=== PATIENT | female | born 1970 | race Caucasian/White ===

== ENCOUNTER 2016-11-19 11:43 | Emergency (ER) | payer OTHER ==
[~2016-11-19] VITALS: Ht 165.1 cm; Wt 94.1 kg
[~2016-11-19 11:43] MED LIST: ABILIFY10 MG PO; ACIPHEX20 MG PO; BAYER BACK & B1 EACH PO; BENTYL20 MG PO; BUSPAR10 MG PO; CARAFATE1 GM PO; DILAUDID2 MG PO; FEOSOL325 MG PO; FLAGYL500 MG PO; PRILOSEC20 MG PO; VALACYCLOVIR1000 MG PO; VIVARIN200 MG PO; ZOFRAN ODT8 MG PO; ZOFRAN4 MG PO; ZOLOFT100 MG PO; ZYRTEC10 M2 PO
[2016-11-19 12:44] LABS: EOSINOPHIL (%) 0.4 % (0-5); HEMATOCRIT 42.9 % (36.0-46.0); IMMATURE GRANULOCYTE (%) 0.3 % (0.0-0.7); INSTRUMENT ABS NEUTROPHIL CT 7.2 K/uL; LYMPHOCYTE COUNT 1.9 K/uL (1.0-2.8); MCH 30.2 PG (29.0-34.0); MCHC 34.5 G/DL (30.0-36.0); MCV 87.6 FL (83-99); MEAN PLAT.VOLUME 11.4 uM^3 (9.5-12.4); MONOCYTE (%) 5.7 % (3-12); MONOCYTE COUNT 0.6 K/uL (0-0.8); NEUTROPHIL (%) 73.8 % (45-76); NEUTROPHIL COUNT 7.2 K/uL (1.8-6.4); PLATELET COUNT 174 K/uL (156-360); RBC DIS.WIDTH-CV 14.6 % (11.8-14.6); RBC DIS.WIDTH-SD 47.1 % (39-53); WHITE BLOOD COUNT 9.7 K/uL (4.1-10.2)
[2016-11-19 12:45] LABS: INTER. NORMALIZED RATIO 1.1; PROTHROMBIN TIME 11.6 SEC (10.2-12.9)
[2016-11-19 12:46] LABS: CHLORIDE 105 mEq/L (99-109); POTASSIUM 3.7 mEq/L (3.7-5.4); SODIUM 139 mEq/L (136-147)
[2016-11-19 12:48] LABS: GLUCOSE 97 mg/dL (70-99)
[2016-11-19 12:49] LABS: ANION GAP 11 MEQ/L (2-14)
[2016-11-19 12:50] LABS: TOTAL BILIRUBIN 0.7 mg/dL (0.0-1.0)
[2016-11-19 12:52] LABS: ALKALINE PHOSPHATASE 84 IU/L (3-129); GFR ESTIMATE (CALCULATED) > 59 mL/min/
[2016-11-19 12:53] LABS: UREA NITROGEN (BUN) 11 mg/dL (9-23)
[2016-11-19 12:55] LABS: LIPASE 29 U/L (1.0-51.0)
[2016-11-19] MEDS ORDERED: ZOFRAN4 MG PO (13:49)
[2016-11-19 14:21] VITALS: BP 100/50
== END 2016-11-19 14:53 | disposition home or self-care (01) ==
LOC: EME 11:43
PROVIDERS: Emergency Medicine
DX: K52.9 Noninfective gastroenteritis and colitis, unspecified (principal); R53.1 Weakness; R42 Dizziness and giddiness; Z90.710 Acquired absence of both cervix and uterus; F17.200 Nicotine dependence, unspecified, uncomplicated
CPT/HCPCS: 80053; 83690; 85025; 85610; 99281; 99284; J7030